=== PATIENT | female | born 1980 ===

== ENCOUNTER → 2023-03-01 16:00 | Outpatient (CLI) | payer BC, SELFPAY ==
--- NOTE | ~2023-03-01 | US_ITS ---
Pelvic ultrasound. Clinical History: Abnormal uterine bleeding Technique: Realtime transabdominal and transvaginal scanning of the pelvis was performed. Color flow Doppler and Doppler spectral analysis were performed. Findings: The uterus is anteverted. The endometrial stripe has a thickness of 9 mm. No focal mass is identified. The right ovary measures 3.3 x 2.0 x 2.0 cm. No significant right ovarian or adnexal mass is seen. The left ovary measures 2.4 x 2.9 x 1.9 cm. No significant left ovarian or adnexal mass is seen. Vascular flow present in both ovaries on Doppler spectral analysis. There is no evidence of free fluid in the cul de sac. Impression: Unremarkable pelvic ultrasound. Reviewed, dictated and finalized at [facility]. Impression: Unremarkable pelvic ultrasound.
== END ==
PROVIDERS: PCP Registered Nurse School; Visit Provider Registered Nurse School
DX: N93.9 Abnormal uterine and vaginal bleeding, unspecified (principal)
CPT/HCPCS: 76830; 76856